=== PATIENT | female | born 1970 ===

== ENCOUNTER → 2017-03-31 | Outpatient (CLI) | payer OTHER ==
--- NOTE | 2017-04-11 11:08 | REP ---
REASON: Contusion. PRIORS: None. Plain film examination of the facial bones is inherently limited compared to CT. If a facial bone fracture is of clinical concern, then the gold standard for imaging fractures is maxillofacial CT. This limited examination shows no evidence of a gross maxillofacial fracture. Signed by Ted Nunez DO 03/31/2017 03:13 P
== END ==
LOC: M WUC 11:21 → EDBD 11:21
PROVIDERS: ATTEND Physician Assistant
DX: S00.83XA Contusion of other part of head, initial encounter (principal); W18.30XA Fall on same level, unspecified, initial encounter; Y92.009 Unspecified place in unspecified non-institutional (private) residence as the place of occurrence of the external cause